=== PATIENT | male | born 1995 ===

== ENCOUNTER 2024-06-19 17:09 | Emergency (ER) | payer OTHER, SELFPAY ==
--- OUTSIDE RECORDS SUMMARY | 2024-06-19 17:11 | XMS_ITS | Referral Summary ---
Author Organization [facility] Address [address] [place] [address] [address] [place] [address] Care Team Providers Care Home Hospice Aide Name Role Phone Carla Tran TOOL AND DIE ENGINEER Primary Care Provider Allergies No known active allergies Medications chlorhexidine (PERIDEX) 0.12 % solution SWISH MOUTH WITH 15 ML AND SPIT TWICE DAILY FOR 14 DAYS 3 Active docusate sodium (COLACE) 100 mg capsuleIndicati ons:constipatio n Take 1-2 pills once daily as needed for chronic constipation issues 60 capsule 2 3 Active Active Problems Problem Noted Date Diagnosed Date Blood in stool 04/24/2023 Right flank pain 04/24/2023 Straining with stools 04/24/2023 Flank pain 04/24/2023 Straining during bowel movements 04/24/2023 Hepatic steatosis 04/24/2023 Immunizations Name Administration Dates Next Due Influenza, Unspecified 03/07/2023(Deferr ed: Patient Refused),05/15/2022(Deferred: Patient Refused) Social History Tobacco Use Types Packs/Day Years Used Date Smoking Tobacco: Some Days Cigarettes 0.1 0.5 Hookah E-cigarettes Passive Smoke Exposure: Never Smokeless Tobacco: Never Tobacco Cessation:Ready to Q uit: Not Asked; Counseling Given: Not Answered Comments:Super occasional smoking / social AUDIT-C Answer Date Recorded Q1: How often do you have a drink containing alc ohol? Never 04/24/2023 Average Number of Drinks Not on file 023 Frequency of Binge Drinking Not on file 04/14 PHQ-2 Answer Date Recorded PHQ-2 Total Score (If total score is 3 or more points, staff should administer the PHQ-9) 2 04/12/2023 Sex and Gender Information Value Date Recorded Sex Assigned at Not on file Legal Sex Male 5:20 PM CDT Gender Identity Not on file Sexual Orientation Not on file Last Filed Vital Signs Vital Sign Reading Time Taken Comments Blood Pressure 125/81 04/24/2023 2:27 PM FIREBREAK CUTTER Pulse 73 04/24/2023 2:27 PM FIREBREAK CUTTER Temperature 36.6 C (97.9 F) 04/24/2023 9:41 AM FIREBREAK CUTTER Respiratory Rate 18 04/24/2023 9:41 AM FIREBREAK CUTTER Oxygen Saturation 98% 04/24/2023 2:27 PM FIREBREAK CUTTER Inhaled Oxygen Concentration - - Weight 102.8 kg (226 lb 11.2 oz) 04/24/2023 2:27 PM FIREBREAK CUTTER Height 172 cm (5' 7.72 ) 04/24/2023 2:27 PM FIREBREAK CUTTER Body Mass Index 34.76 04/24/2023 2:27 PM FIREBREAK CUTTER Plan of Treatment Not on file Insurance [facility] GLOBAL Care Teams Home Hospice Aide Relationship Specialty Start Date End Date Carla Tran NP [address] [place] [address] PCP - General Family Medicine 03/07/23
--- OUTSIDE RECORDS SUMMARY | 2024-06-19 17:11 | XMS_ITS | Clinical Summary ---
Author Organization [facility] [place] Address [address] [place] [address] [address] [place] [address] Care Team Providers Care Instrument Lens Grinder Name Role Phone Carla Tran DENTAL OFFICE RECEPTIONIST Primary Care Provider [phone] Allergies No known active allergies Medications chlorhexidine [...] Unspecified 03/07/2023(Deferr ed: Patient Refused),05/15/2022(Deferred: Patient Refused) Medical History Medical History Date Comments Kidney stone 2018 Social History Tobacco Use Types Packs/Day Years [...] on file Sexual Orientation Not on file Obstetrics History Last Filed Vital Signs Vital Sign Reading Time Taken Comments Blood Pressure 125/81 04/24/2023 2:27 PM EMPLOYEE COMMUNICATIONS COORDINATOR Pulse 73 04/24/2023 2:27 PM EMPLOYEE COMMUNICATIONS COORDINATOR Temperature 36.6 C (97.9 F) 04/24/2023 9:41 AM EMPLOYEE COMMUNICATIONS COORDINATOR Respiratory Rate 18 04/24/2023 9:41 AM EMPLOYEE COMMUNICATIONS COORDINATOR Oxygen Saturation 98% 04/24/2023 2:27 PM EMPLOYEE COMMUNICATIONS COORDINATOR Inhaled Oxygen Concentration - - Weight 102.8 kg (226 lb 11.2 oz) 04/24/2023 2:27 PM EMPLOYEE COMMUNICATIONS COORDINATOR Height 172 cm (5' 7.72 ) 04/24/2023 2:27 PM EMPLOYEE COMMUNICATIONS COORDINATOR Body Mass Index 34.76 04/24/2023 2:27 PM EMPLOYEE COMMUNICATIONS COORDINATOR Plan of Treatment Health Maintenance Due Date Last Done Comments Hepatitis C Screening 1997 Pneumococcal vaccine <65 (1 of 2 - PCV) 2003 DTaP/Tdap/Td Vaccine (1 - Tdap) 2008 Varicella Vaccines (1 of 2 - 13+ 2-dose series) 2010 Hepatitis B Screening 2015 Regular Well Visit/Exam 18-64 2015 Influenza Vaccine (#1) 2024 Depression Screening 04/12/2024 04/12/2023, 03/07/2023 HPV Vaccines Aged Out No longer eligi ble based on patient's age to complete this topic Insurance [facility] GLOBAL [facility] HMO/PPO Address: [facility] [address] [place] [address] Care Teams Instrument Lens Grinder Relationship Specialty Start Date End Date Carla Tran NP [address] [facility] [address] [place] [address] PCP - General Family Medicine 03/07/23
[2024-06-19 17:14] VITALS: BP 153/91; PULSE 83; RESP 16; TEMP 36.4; O2SAT 100
--- NOTE | 2024-06-19 18:52 | ED.ABDPAIN ---
HPI - Abdominal Pain General Chief Complaint: Abdominal Pain Stated Complaint: RLQ abd pain Focused HPI:This is a 29-year-old male who presents to the ED for chief complaint of right sided abdominal pain intermittently over the past several months. Patient notes that the pain comes on seemingly a random while he is at work at his desk. Denies associated fevers, chills, vomiting, diarrhea, troubles with bowel movements or urination. States that he has had ureterolithiasis and epididymitis in the past. denies testicular pain, swelling or penile discharge. 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 HEAD: Normocephalic, atraumatic. CHEST: Clear to auscultation. No respiratory distress. HEART: Regular rate and rhythm. ABD: Mild right lower quadrant/ right lateral abdominal tenderness. Soft and otherwise nontender abdomen. NEURO: Alert and oriented x3. Patient screened in triage and initial orders placed. Additional care and disposition to be based upon diagnostic testing and treatment. Source: patient Mode of arrival: ambulatory Limitations: no limitations Course Vital Signs Vital signs: Vital Signs Temperature 97.6 F 06/19/24 17:14 Pulse Rate 83 06/19/24 17:14 Respiratory Rate 16 06/19/24 17:14 Blood Pressure 153/91 H 06/19/24 17:14 Pulse Oximetry 100 06/19/24 17:14 Temperature 97.6 F 06/19/24 17:14 Pulse Rate 83 06/19/24 17:14 Respiratory Rate 16 06/19/24 17:14 Blood Pressure 153/91 H 06/19/24 17:14 Pulse Oximetry 100 06/19/24 17:14 MDM - Abdominal Pain MDM Narrative Medical decision making narrative: Patient eloped after being initially screened in triage Lab Data 06/19/24 21:54 06/19/24 21:54 Labs: Lab Results 06/19/24 06/19/24 Range/Units 21:54 21:55 WBC 8.8 (4.5-10.0) K/mm3 RBC 5.67 (4.6-6.20) M/mm3 Hgb 14.1 (14.0-18.0) g/dL Hct 45.0 (42.0-52.0) % MCV 79.4 L (80-100) fl MCH 24.9 L (26-34) pg MCHC 31.3 L (32-36) g/dl RDW 14.2 (11.5-14.5) % Plt Count 330 (150-375) k/mm3 MPV 10.0 (7.4-10.4) fl Immature Gran % (Auto) 0.1 (0-0.5) % Neut % (Auto) 53.4 (45.5-73.1) % Lymph % (Auto) 32.6 (18.3-44.2) % [place] % (Auto) 7.0 (2.6-8.5) % Eos % (Auto) 5.8 H (0-4.4) % Baso % (Auto) 1.1 (0.2-1.2) % Lymph # (Auto) 2.88 (0.9-3.2) K/mm3 [place] # (Auto) 0.6 (0.1-0.6) K/mm3 Eos # (Auto) 0.5 H (0-0.3) K/mm3 Baso # (Auto) 0.1 (0.0-0.1) K/mm3 Abs Immat Gran (auto) 0.01 (0.00-0.031) K/mm3 Absolute Neuts (auto) 4.7 (1.3-6.7) K/mm3 Absolute Nucleated RBC 0.000 (0.0-0.012) K/mm3 Nucleated RBC % 0.0 (0.0-0.2) % Sodium 142 (137-145) mmol/L Potassium 3.6 (3.4-5.0) mmol/L Chloride 104 (98-107) mmol/L Carbon Dioxide 25 (22-30) mmol/L Anion Gap 13 H (4-12) mmol/L BUN 11 (9-20) mg/dL Creatinine 0.83 (0.7-1.3) mg/dL Estim Creat Clear Calc 142 ml/min Estimated GFR > 60 (59 - ) Glucose 96 (65-110) mg/dL Calcium 9.5 (8.4-10.2) mg/dL Total Bilirubin 0.4 (0.2-1.3) mg/dL AST 33 (17-59) U/L ALT 48 (6-50) U/L Alkaline Phosphatase 76 (38-126) U/L Total Protein 8.0 (6.3-8.2) g/dL Albumin 4.6 (3.5-5.1) g/dL Lipase 226 (23-300) U/L Urine Color Yellow (Yellow) Urine Appearance Clear (Clear) Urine pH 6.0 (5.0-9.0) Ur Specific [place] 1.023 (1.001-1.035) Urine Protein Negative (Negative) mg/dL Urine Glucose (UA) Negative (Negative) mg/dL Urine Ketones Negative (Negative) mg/dL Ur Blood (Man) Negative (Negative) Urine Nitrate Negative (Negative) Urine Bilirubin Negative (Negative) Urine Urobilinogen 0.2 (<2.0) mg/dL Leukocyte Esterase Rfl Negative (Negative) IAM/UL Discharge Plan Discharge Clinical Impression: Abdominal pain Patient Disposition: Elopement After Seen by Prov Condition: Stable Instructions: Antibiotic Form Patient Language: French Follow-up/Referrals: PHYSICIAN,BATCH FREEZER [Primary Care Provider] -
[2024-06-19 22:26] LABS: Basophils Absolute Auto 0.1 K/mm3 (0.0-0.1); Basophils Percent Auto 1.1 % (0.2-1.2); Eosinophils Absolute Auto 0.5 K/mm3 (0-0.3); Eosinophils Percent Auto 5.8 % (0-4.4); Hemoglobin 14.1 g/dL (14.0-18.0); Immature Granulocyte Absolute 0.01 K/mm3 (0.00-0.031); Immature Granulocyte Percent A 0.1 % (0-0.5); Lymphocytes Absolute Auto 2.88 K/mm3 (0.9-3.2); Lymphocytes Percent Auto 32.6 % (18.3-44.2); Mean Corpuscular HGB Conc 31.3 g/dl (32-36); Mean Corpuscular Hemoglobin 24.9 pg (26-34); Mean Corpuscular Volume 79.4 fl (80-100); Monocytes Absolute Auto 0.6 K/mm3 (0.1-0.6); Neutrophils Absolute Auto 4.7 K/mm3 (1.3-6.7); Neutrophils Percent Auto 53.4 % (45.5-73.1); Platelet Count Result 330 k/mm3 (150-375); Red Blood Count 5.67 M/mm3 (4.6-6.20); Red Cell Distribution Width 14.2 % (11.5-14.5); White Blood Count 8.8 K/mm3 (4.5-10.0)
[2024-06-19 22:27] LABS: Add Urine Microscopic? NO; Appearance Urine Clear (Clear); Bilirubin Urine Negative (Negative); Blood Urine Negative (Negative); Color Urine Yellow (Yellow); Glucose Urine UA Negative (Negative); Ketones Urine Negative (Negative); Leukocyte Esterase Ur Negative LEU/UL (Negative); Nitrate Urine Negative (Negative); Protein Urine Negative (Negative); Specific Grav Ur 1.023 (1.001-1.035); Urobilinogen Urine 0.2 mg/dL (<2.0)
[2024-06-19 22:36] LABS: Alanine Aminotransferase 48 U/L (6-50); Albumin Level 4.6 g/dL (3.5-5.1); Alkaline Phosphatase 76 U/L (38-126); Anion Gap 13 mmol/L (4-12); Aspartate Amino Transferase 33 U/L (17-59); Bilirubin,Total 0.4 mg/dL (0.2-1.3); Blood Urea Nitrogen 11 mg/dL (9-20); Calcium 9.5 mg/dL (8.4-10.2); Carbon Dioxide 25 mmol/L (22-30); Chloride 104 mmol/L (98-107); Estimated CRCL calculation 142 ml/min; Estimated Glomerular Filt Rate > 60; Glucose 96 mg/dL (65-110); Lipase 226 U/L (23-300); Potassium 3.6 mmol/L (3.4-5.0); Sodium 142 mmol/L (137-145)
--- NOTE | 2024-06-20 00:21 | PC.NURSE ---
Pt approached triage desk multiple times about wait times. Pt informed multiple times that we are not allowed to give out wait times due to it being able to change at any point. Pt just approached triage desk stating he was going to leave and asked about how to see his lab results on the patient portal. Pt given patient portal pamphlet and advised that it has all the steps to create a portal. Pt ambulated to ED exit with steady gait and no signs for concern at this time.
--- OUTSIDE RECORDS SUMMARY | 2024-06-20 04:51 | XMS_ITS | Clinical Summary ---
Author Organization [facility] [place] Address [address] [place] [address] [address] [place] [address] Care Team Providers Care Early Childhood Educator Aide Name Role Phone Carla Tran MULTIFOLD OPERATOR Primary Care Provider [phone] Allergies No known active allergies Medications chlorhexidine [...] Comments Blood Pressure 125/81 04/24/2023 2:27 PM CLAY PREPARATION SUPERVISOR Pulse 73 04/24/2023 2:27 PM CLAY PREPARATION SUPERVISOR Temperature 36.6 C (97.9 F) 04/24/2023 9:41 AM CLAY PREPARATION SUPERVISOR Respiratory Rate 18 04/24/2023 9:41 AM CLAY PREPARATION SUPERVISOR Oxygen Saturation 98% 04/24/2023 2:27 PM CLAY PREPARATION SUPERVISOR Inhaled Oxygen Concentration - - Weight 102.8 kg (226 lb 11.2 oz) 04/24/2023 2:27 PM CLAY PREPARATION SUPERVISOR Height 172 cm (5' 7.72 ) 04/24/2023 2:27 PM CLAY PREPARATION SUPERVISOR Body Mass Index 34.76 04/24/2023 2:27 PM CLAY PREPARATION SUPERVISOR Plan of Treatment Health Maintenance Due Date [...] patient's age to complete this topic Insurance [facility] GLOBAL Care Teams Early Childhood Educator Aide Relationship Specialty Start Date End Date Carla Tran NP [address] [facility] [address] [place] [address] PCP - General Family Medicine 03/07/23
--- OUTSIDE RECORDS SUMMARY | 2024-06-20 04:51 | XMS_ITS | Referral Summary ---
Author Organization [facility] [place] Address [address] [place] [address] [address] [place] [address] Care Team Providers Care Business Services Sales Agent Name Role Phone Carla Tran TAR POT MAN Primary Care Provider [phone] Allergies No known active allergies Medications chlorhexidine [...] Comments Blood Pressure 125/81 04/24/2023 2:27 PM ADMITTING INTERVIEWER Pulse 73 04/24/2023 2:27 PM ADMITTING INTERVIEWER Temperature 36.6 C (97.9 F) 04/24/2023 9:41 AM ADMITTING INTERVIEWER Respiratory Rate 18 04/24/2023 9:41 AM ADMITTING INTERVIEWER Oxygen Saturation 98% 04/24/2023 2:27 PM ADMITTING INTERVIEWER Inhaled Oxygen Concentration - - Weight 102.8 kg (226 lb 11.2 oz) 04/24/2023 2:27 PM ADMITTING INTERVIEWER Height 172 cm (5' 7.72 ) 04/24/2023 2:27 PM ADMITTING INTERVIEWER Body Mass Index 34.76 04/24/2023 2:27 PM ADMITTING INTERVIEWER Plan of Treatment Not on file Insurance [facility] GLOBAL [facility] HMO/PPO Address: [facility] [address] [place] [address] Care Teams Business Services Sales Agent Relationship Specialty Start Date End Date Carla Tran NP [address] [place] [address] PCP - General Family Medicine 03/07/23
== END 2024-06-20 00:21 | disposition left against medical advice (07) ==
LOC: ANHED 06-20 04:49
PROVIDERS: Emergency Provider Physician Assistant
DX: R10.31 Right lower quadrant pain (principal)
CPT/HCPCS: 36415; 80053; 81003; 83690; 85025; 99283